=== PATIENT | male | born 1955 | race Caucasian/White ===

== ENCOUNTER 2019-02-09 10:26 | Emergency (ER) | payer OTHER, MEDICARE ==
[~2019-02-09] VITALS: Ht 172.7 cm; Wt 72.6 kg
[2019-02-09 10:37] VITALS: BP_SYST 150
--- NOTE | 2019-02-09 10:37 | NUR ---
Patient to ER bed 3 to gown for evaluation. Side rails up. Report given to PETE Daniel.
--- NOTE | 2019-02-09 10:38 | NUR ---
Patient is awake, alert, and oriented x4. He is complaining of nagging abdominal pain x5 weeks. States he was seen by a GI specialist at [facility] and they did nothing for him.
--- NOTE | 2019-02-09 10:54 | NUR ---
FEDERICO Coreas at bedside examining patient.
[2019-02-09] MEDS ORDERED: MAG HYDROX/AL HYDROX/SIMETH 30 ML, DICYCLOMINE HCL 20 MG, LIDOCAINE VISCOUS 2% 15ML (PO... PO ONE ×3 (11:00)
[2019-02-09 11:14] LABS: BASOPHILS % (AUTO) 0.5 % (0.0-2.0); EOSINOPHILS # (AUTO) 0.2 K/uL (0.0-0.4); EOSINOPHILS % (AUTO) 3.1 % (0.0-4.0); HEMATOCRIT 44.6 % (36-54); LYMPHOCYTES # (AUTO) 1.3 K/uL (1.0-5.5); LYMPHOCYTES % (AUTO) 17.8 % (20.5-51.5); MEAN CORPUSCULAR HEMOGLOBIN 30 pg (27-31); MEAN CORPUSCULAR HGB CONC 34 % (32-36); MEAN CORPUSCULAR VOLUME 88 fL (79.0-98.0); MONOCYTES # (AUTO) 0.4 K/uL (0.0-1.0); MONOCYTES % (AUTO) 5.6 % (1.7-9.3); NEUTROPHILS # (AUTO) 5.3 K/uL (1.8-7.7); PLATELET COUNT (AUTO) 387 K/uL (130-430); RED BLOOD CELL COUNT(AUTO) 5.06 MIL/uL (4.2-6.2); RED CELL DISTRIBUTION WIDTH 13.2 % (9.0-15.0); WHITE BLOOD COUNT (AUTO) 7.2 K/uL (4.8-10.8)
[2019-02-09 11:22] LABS: CALCIUM 9.7 mg/dL (8.4-11.0); CREATININE 0.95 mg/dL (0.55-1.30); POTASSIUM 5.2 mmol/L (3.5-5.1)
[2019-02-09 11:28] LABS: ALBUMIN 3.8 g/dL (3.4-4.8); TOTAL BILIRUBIN 0.4 mg/dL (0.0-1.0)
[2019-02-09] MEDS ORDERED: SODIUM POLYSTYRENE SULFONATE 15 GM/60 ML UDBTL PO ONE (11:45)
[2019-02-09] MEDS ORDERED: ONDANSETRON 4 MG ODT TAB PO ONE (12:30)
--- NOTE | 2019-02-09 12:34 | NUR ---
Vitals reported to Dr. Coreas.
[2019-02-09] MEDS ORDERED: cloNIDine HCL 0.1 MG TABLET PO ONE (12:45)
[2019-02-09 14:02] VITALS: BP_SYST 147
--- NOTE | 2019-02-09 14:02 | NUR ---
Patient given written and verbal discharge instructions and verbalizes understanding. ER MD discussed with patient the results and treatment provided. Patient in stable condition. ID arm band removed.Patient educated on pain management and to follow up with PMD. Pain Scale 0/10. Opportunity for questions provided and answered. Medication side effect fact sheet provided.
== END 2019-02-09 14:02 | disposition home or self-care (01) ==
LOC: SED 10:26
DX: K80.20 Calculus of gallbladder without cholecystitis without obstruction (principal); E87.5 Hyperkalemia; I10 Essential (primary) hypertension
CPT/HCPCS: 36415; 76700; 80053; 83690; 85025; 99284; J2001; Q0162